=== PATIENT | female | born 1990 | race Asian ===

== ENCOUNTER 2018-07-11 10:02 | Outpatient (CLI) | END 2018-07-11 12:50 | disposition home or self-care (01) ==

== ENCOUNTER 2018-07-19 13:51 | Outpatient (CLI) | END 2018-07-19 17:25 | disposition home or self-care (01) ==

== ENCOUNTER 2018-07-29 15:28 | Outpatient (CLI) | END 2018-07-29 18:15 | disposition home or self-care (01) ==

== ENCOUNTER 2018-07-30 11:30 | Inpatient (IN) | END 2018-08-02 16:00 | disposition home or self-care (01) | DRG 807 ==